=== PATIENT | male | born 1965 | race Caucasian/White ===

== ENCOUNTER 2025-05-24 13:28 | Emergency (ER) | payer MEDICARE, MEDICAID, SELFPAY ==
[2025-05-24 13:29] VITALS: BP 94/65; PULSE 81; RESP 12; TEMP 36.6; O2SAT 95; BMI 16.7
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
[2025-05-24 15:47] VITALS: BP 100/75; PULSE 67; RESP 13; O2SAT 100
[2025-05-24] MEDS: 0.9% Normal Saline (1000mL) 1,000 ML 1000 ML IV (15:50)
[2025-05-24 15:56] LABS: Absolute Lymphocyte Count 2.62 X10^3/uL (0.83-4.51); Absolute Neutrophil Count 4.4 X10^3/uL (2.0-7.7); Basophil# 0.04 X10^3/uL; Basophil% 0.5 % (0-1); Eosinophil# 0.16 X10^3/uL; Hematocrit 41.9 % (40-54); Hemoglobin 13.9 g/dL (13.0-16.5); Lymphocyte # 2.62 X10^3/ul (0.83-4.51); Lymphocyte % 33.5 % (19-41); Mean Corp Hgb Conc 33.2 g/dL (32-36); Mean Corpuscular Hgb 32.4 pg (27.0-32.0); Mean Corpuscular Volume 97.7 fL (80-94); Mean Platelet Vol. 9.6 fl (6.2-12.0); Monocyte# 0.54 X10^3/uL; Monocyte% 6.9 % (0-10); NRBC Flagged by Analyzer 0 % (0-5); Neutrophil # 4.43 X10^3/uL (2.7-7.7); Neutrophil % 56.8 % (47-70); Platelet Count 222 K/mm3 (150-450); RBC Distribution Width CV 12.7 % (11.6-14.6); RBC Distribution Width SD 45.5 fl (35.1-43.9); Red Blood Count 4.29 M/mm3 (4.6-6.2); White Blood Count 7.8 K/mm3 (4.4-11.0)
--- NOTE | 2025-05-24 16:22 | RAD_ITS ---
PROCEDURE: CHEST 1 VIEW (PORTABLE) 05/24/2025 REASON FOR EXAM: CAD TECHNIQUE: Frontal views of the chest. COMPARISON: None FINDINGS: Hardware: None Heart: The heart size is normal. Lungs: No focal consolidation or significant pleural effusion. There is a nodular density measuring 7 mm in the left mid lung zone. Bones: Degenerative changes and rightward curvature of the thoracic spine. RAD/Chest 1 View (Portable) IMPRESSION: 1. No acute cardiopulmonary abnormality. 2. Nodular density measuring 7 mm in the left mid lung zone, possibly calcifie d granuloma. Consider nonemergent CT if patient has risk factors for malignancy. Reading Location: [id number]
[2025-05-24 16:39] LABS: ALB/GLOB Ratio 1.3 RATIO (0.9-2.4); AST(SGOT) 16 U/L (<=37); Alanine Aminotransfer ALT/SGPT 8 U/L (<=46); Albumin, Serum 4.5 g/dL (3.5-5.0); Alkaline Phosphatase 101 U/L (40-129); Anion Gap 10 (5-15); BUN 22 mg/dL (4-19); BUN/Creat Ratio 23.2 RATIO (10-20); Calcium,Total 9.9 mg/dL (7.6-11.0); Carbon Dioxide 26.5 mmol/L (21.0-32.0); Chloride 105 mmol/L (98-108); Creatinine, Serum 0.93 mg/dL (0.70-1.20); EST Glomerular Filtration Rate 94 (>60); Estimated Creatinine Clearance 69.68 ml/min (50-250); Globulin 3.4 g/dL (2.2-4.2); Glucose 97 mg/dL (70-99); Potassium 4.5 mmol/L (3.3-5.1); Protein, Total 7.9 g/dL (5.9-8.4); Sodium Level 142 mmol/L (133-145)
[2025-05-24 17:00] VITALS: BP 108/73; PULSE 68; RESP 14; TEMP 36.6; O2SAT 97
--- NOTE | 2025-05-24 17:06 | CM.ED ---
Social Work MARQUIS spoke with patient and patients family who expressed desire for patient to be admitted to [facility] instead of returning to current facility. Patients daughter stated she had been in contact with the admission director from [facility] [place] . MARQUIS asked for name and phone number for admission director which patients daughter was able to provide. MARQUIS contacted Ashia at [phone], who stated they had been in the process of accepting patient but was still waiting on transfer LOC from current facility. Ashia confirmed that [facility] was able to admit patient from the ED, that Lane would complete the LOC once admitted and that she had the current PASRR for patient. MARQUIS sent ER summary and labwork to [facility] [place] through [facility]. Family and patient notified of same, family to transport patient when discharged. Sunshine Trimble, MEMBERSHIP MANAGER, [employer]IP[employer]
== END 2025-05-24 17:46 | disposition home or self-care (01) ==
PROVIDERS: Emergency Provider Emergency Medicine; Referring Provider Emergency Medicine; Visit Provider Emergency Medicine
DX: Z01.89 Encounter for other specified special examinations (principal); F10.97 Alcohol use, unspecified with alcohol-induced persisting dementia; J44.9 Chronic obstructive pulmonary disease, unspecified; R53.1 Weakness; R21 Rash and other nonspecific skin eruption; I10 Essential (primary) hypertension; E78.5 Hyperlipidemia, unspecified; I25.10 Atherosclerotic heart disease of native coronary artery without angina pectoris; F17.210 Nicotine dependence, cigarettes, uncomplicated; R63.4 Abnormal weight loss
CPT/HCPCS: 71045; 80053; 85025; 96360; 96361; 99283; A4216